=== PATIENT | male | born 1960 | race Caucasian/White ===

== ENCOUNTER → 2021-11-19 | Outpatient (CLI) | payer MEDICARE | LOC: KOH-I 15:15 | DX: S86.812A Strain of other muscle(s) and tendon(s) at lower leg level, left leg, initial encounter (principal); M22.41 Chondromalacia patellae, right knee; M67.461 Ganglion, right knee; S76.111A Strain of right quadriceps muscle, fascia and tendon, initial encounter; S83.241A Other tear of medial meniscus, current injury, right knee, initial encounter | CPT/HCPCS: 73721 ==